=== PATIENT | female | born 1995 | race Hispanic/Latino ===

== ENCOUNTER → 2017-03-18 | Outpatient (CLI) | payer BC, MEDICAID | END | disposition home or self-care (01) | LOC: LAB.O 14:21 | PROVIDERS: ATTEND Obstetrics & Gynecology | DX: N91.5 Oligomenorrhea, unspecified (principal) ==

== ENCOUNTER 2017-10-26 00:27 | Emergency (ER) | payer BC ==
[2017-10-26 00:41] VITALS: BP 152/92; TEMP 98.7; O2SAT 98
[2017-10-26] MEDS ORDERED: IBUPROFEN 200 MG TAB PO ONE (00:51)
[2017-10-26] MEDS ORDERED: HYDROcodone 10MG/APAP 325MG 1 EA TAB PO ONE (00:51)
[2017-10-26] MEDS ORDERED: CYCLOBENZAPRINE HCL 10 MG TAB PO ONE (00:51)
--- NOTE | 2017-10-26 00:57 | ED.PDOC ---
History of Present Illness - General Chief Complaint: Back Pain or Injury Stated Complaint: pain to left side of back Time Seen by Provider: 10/26/17 00:51 Source: patient, family Exam Limitations: no limitations - History of Present Illness Initial Comments: Gradual onset of left sided back pain from the scapular region downward to almost the iliac crest. It does not radiate to the abdomen & is clearly worse with ROM, laughing & vomiting (after the onset of the pain). It hurts to try & raise her left arm. She reports no injury than perhaps from washing windows today. No previous episodes. No associated symptoms other than the vomiting which has resolved. Timing/Duration: 1-3 hours Quality/Severity: moderate, sharpness Back Pain Location: paraspinous muscles Back Pain Radiation: other - none Method of Injury/Prior Injury: other - she was washing & cleaning windows earlier today Improving Factors: nothing Worsening Factors: movement Associated Symptoms: denies symptoms Allergies/Adverse Reactions: Allergies NO KNOWN ALLERGY Allergy (Verified 10/26/17 00:41) Home Medications: Ambulatory Orders Cyclobenzaprine HCl [Flexeril] 10 mg PO Q8HR PRN #10 tab 10/26/17 Tramadol HCl 50 mg PO Q8HR PRN 3 Days #10 tab 10/26/17 Review of Systems - Review of Systems Constitutional: States: no symptoms reported EENTM: States: no symptoms reported Respiratory: States: no symptoms reported Cardiology: States: no symptoms reported Gastrointestinal/Abdominal: States: vomiting Genitourinary: States: no symptoms reported, other - hx of irregular menses Musculoskeletal: States: see HPI Skin: States: no symptoms reported Neurological: States: no symptoms reported All other Systems: No Change from Baseline Past Medical History (General) - Patient Medical History Hx Seizures: No Hx Stroke: No Hx Dementia: No Hx Asthma: No Hx of COPD: No Hx Cardiac Disorders: No Hx Congestive Heart Failure: No Hx Pacemaker: No Hx Hypertension: No Hx Thyroid Disease: No Hx Diabetes: No Hx Gastroesophageal Reflux: No Hx Renal Disease: No Hx of HIV: No Hx MRSA: No Surgical History: no surgical history - Vaccination History Hx Tetanus, Diphtheria Vaccination: No Hx Influenza Vaccination: No - Social History Hx Tobacco Use: No Hx Alcohol Use: No Family Medical History - Family History Mother Living Status: Still Living Physical Exam - Physical Exam General Appearance: Alert, No apparent distress, Other - uncomfortable; lying still & trying not to move Neck Exam: non-tender, full range of motion, normal inspection Cardiovascular/Respiratory: no JVD, no respiratory distress Back Exam: normal inspection, no vertebral tenderness, decreased range of motion , other - diffuse tenderness to left side of back Extremity Exam: no evidence of injury, pain with movement - of her back Neurologic: no motor/sensory deficits, alert, normal mood/affect, oriented x 3 Skin Exam: normal color, warm/dry Departure - Departure Clinical Impression: Back pain, Muscle strain Condition: Fair Departure Forms: Patient Portal Self Enrollment Instructions: DI for Low Back Pain, DI for Back Spasm, DI for Back Strain or Sprain Activity: walking as tolerated Prescriptions: Cyclobenzaprine HCl [Flexeril] 10 mg PO Q8HR PRN #10 tab PRN Reason: Joint Or Muscle Pain Tramadol HCl 50 mg PO Q8HR PRN 3 Days #10 tab PRN Reason: Moderate Pain Home Medications: Ambulatory Orders Cyclobenzaprine HCl [Flexeril] 10 mg PO Q8HR PRN #10 tab 10/26/17 Tramadol HCl 50 mg PO Q8HR PRN 3 Days #10 tab 10/26/17
== END 2017-10-26 01:19 | disposition home or self-care (01) ==
LOC: ER 00:27
DX: S29.012A Strain of muscle and tendon of back wall of thorax, initial encounter (principal); X58.XXXA Exposure to other specified factors, initial encounter; Y92.9 Unspecified place or not applicable

== ENCOUNTER 2017-11-02 16:10 | Emergency (ER) | payer BC ==
[2017-11-02] MEDS ORDERED: TETANUS,DIPHTHERIA,PERTUSSIS 1 EA SYG IM ONE (16:18)
[2017-11-02] MEDS ORDERED: AMOXICILLIN & POT CLAVULANATE 875 MG TAB PO ONE (16:18)
[2017-11-02 16:34] VITALS: BP 119/78; TEMP 98
--- NOTE | 2017-11-02 17:03 | RAD ---
EXAM DESCRIPTION: Fingers,Left CLINICAL HISTORY: 22 years Female dog bite pinky COMPARISON: None. TECHNIQUE: Left finger, three views FINDINGS: No acute fractures or dislocations are identified. No osseous destructive lesions. No radiopaque foreign object noted. IMPRESSION: No acute fracture is identified. Soft tissue swelling along the volar surface of the fifth digit Electronically signed by: Katya Montes MD 11/02/2017 5:02 PM CDT
--- NOTE | 2017-11-02 17:09 | ED.PDOC ---
History of Present Illness - General Chief Complaint: Bite: Animal/Insect/Human Stated Complaint: dog bite Time Seen by Provider: 11/02/17 16:17 Source: patient Exam Limitations: no limitations - History of Present Illness Initial Comments: the patient is a 22-year-old female presenting to the emergency room secondary to a dog bite to her left pinky. She has a couple of puncture wounds to the palmar aspect. She actually moves the pinky well but is reporting some mild decreased sensation down the lateral aspect. Capillary refills within normal limits. No deformity. She reports that she was getting her dog unstuckwhen he got scared and bit her. It is her dog. He has not been acting abnormally. No known exposure to rabies. Timing/Duration: 4-6 hours Severity: moderate Improving Factors: nothing Worsening Factors: nothing Associated Symptoms: denies symptoms Allergies/Adverse Reactions: Allergies NO KNOWN ALLERGY Allergy (Verified 10/26/17 00:41) Home Medications: Ambulatory Orders Cyclobenzaprine HCl [Flexeril] 10 mg PO Q8HR PRN #10 tab 10/26/17 Tramadol HCl 50 mg PO Q8HR PRN 3 Days #10 tab 10/26/17 Amoxicillin & Pot Clavulanate [Augmentin Tab] 875 mg PO BID #10 tab 11/02/17 Review of Systems - Review of Systems Constitutional: States: no symptoms reported EENTM: States: no symptoms reported Respiratory: States: no symptoms reported Cardiology: States: no symptoms reported Gastrointestinal/Abdominal: States: no symptoms reported Genitourinary: States: no symptoms reported Musculoskeletal: States: see HPI Skin: States: see HPI Neurological: States: no symptoms reported Endocrine: States: see HPI Hematologic/Lymphatic: States: no symptoms reported All other Systems: No Change from Baseline Past Medical History (General) - Patient Medical History Hx Seizures: No Hx Stroke: No Hx Dementia: No Hx Asthma: No Hx of COPD: No Hx Cardiac Disorders: No Hx Congestive Heart Failure: No Hx Pacemaker: No Hx Hypertension: No Hx Thyroid Disease: No Hx Diabetes: No Hx Gastroesophageal Reflux: No Hx Renal Disease: No Hx of HIV: No Hx MRSA: No Surgical History: no surgical history - Vaccination History Hx Tetanus, Diphtheria Vaccination: No Hx Influenza Vaccination: No - Social History Hx Tobacco Use: No Hx Alcohol Use: No Family Medical History - Family History Mother Living Status: Still Living Physical Exam - Physical Exam General Appearance: Alert, Comfortable, No apparent distress Eye Exam: bilateral normal Ears, Nose, Throat: hearing grossly normal Neck: full range of motion Respiratory: no respiratory distress, no accessory muscle use Cardiovascular/Chest: normal peripheral pulses, no edema Peripheral Pulses: radial,right: 2+, radial,left: 2+ Rectal Exam: deferred Back Exam: normal inspection Extremity: normal range of motion, no pedal edema, normal capillary refill 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 Capillary refills within normal limits. Comments: Vital Signs - 24 hr 11/02/17 16:30 Temperature 98.0 F Pulse Rate [ 95 H right brachial] Respiratory 16 Rate Blood Pressure 119/78 [right brachial ] O2 Sat by Pulse 90 L Oximetry Progress - Progress Progress: 11/02/17 17:09 the patient is a 22-year-old female presenting to emergency room due to a dog bite to the 5th digit of her left hand. The dog was her own. No abnormal behavior recently. The bite has been reported. The wound has been irrigated for 5 minutes. The patient will be placed on Augmentin twice a day for 5 days for infection prophylaxis. She has received a tetanus shot. Monitor for infection. ER warnings were given. Departure - Departure Clinical Impression: Bite wound Disposition: Discharge to Home or Self Care Condition: Fair Departure Forms: ED Discharge - Pt. Copy, Patient Portal Self Enrollment Diet: regular diet Activity: increase activity as tolerated Prescriptions: Amoxicillin & Pot Clavulanate [Augmentin Tab] 875 mg PO BID #10 tab Home Medications: Ambulatory Orders Cyclobenzaprine HCl [Flexeril] 10 mg PO Q8HR PRN #10 tab 10/26/17 Tramadol HCl 50 mg PO Q8HR PRN 3 Days #10 tab 10/26/17 Amoxicillin & Pot Clavulanate [Augmentin Tab] 875 mg PO BID #10 tab 11/02/17 Additional Instructions: the patient is a 22-year-old female presenting to emergency room due to a dog bite to the 5th digit of her left hand. The dog was her own. No abnormal behavior recently. The bite has been reported. The wound has been irrigated for 5 minutes. The patient will be placed on Augmentin twice a day for 5 days for infection prophylaxis. She has received a tetanus shot. Monitor for infection. ER warnings were given.
[2017-11-02 17:27] VITALS: O2SAT 98
== END 2017-11-02 17:26 | disposition home or self-care (01) ==
LOC: ER 16:10
DX: S61.257A Open bite of left little finger without damage to nail, initial encounter (principal); Z23 Encounter for immunization; W54.0XXA Bitten by dog, initial encounter; Y92.9 Unspecified place or not applicable

== ENCOUNTER → 2017-11-21 | Outpatient (CLI) | payer BC | LOC: LAB.O 10:47 | PROVIDERS: ATTEND Obstetrics & Gynecology | DX: R11.2 Nausea with vomiting, unspecified (principal) ==

== ENCOUNTER 2018-11-05 23:01 | Emergency (ER) | payer BC, OTHER ==
[2018-11-05 23:21] VITALS: BP 124/76; TEMP 98.5; O2SAT 95
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
[2018-11-05] MEDS ORDERED: traMADol HCL 50 MG TAB PO ONE (23:39)
== END 2018-11-06 00:01 | disposition home or self-care (01) ==
LOC: ER 23:01
DX: S49.92XA Unspecified injury of left shoulder and upper arm, initial encounter (principal); Y09 Assault by unspecified means; Y99.0 Civilian activity done for income or pay; Y92.69 Other specified industrial and construction area as the place of occurrence of the external cause

== ENCOUNTER 2020-03-15 17:55 | Emergency (ER) | payer BC ==
[2020-03-15] MEDS ORDERED: ONDANSETRON INJ 4 MG/2 ML VIAL ONE (18:05)
[2020-03-15] MEDS ORDERED: KETOROLAC TROMETHAMINE INJ 30 MG/ML VIAL IM ONE (18:09)
[2020-03-15] MEDS ORDERED: ONDANSETRON INJ 4 MG/2 ML VIAL IV ONE (18:09)
[2020-03-15] MEDS ORDERED: SODIUM CHLORIDE 0.9% 1000ML 1,000 ML IVS ONE (18:10)
[2020-03-15] MEDS ORDERED: ALUM & MAG HYDROX-SIMETHICONE 30 ML, LIDOCAINE VISCOUS 2% 15 ML PO ONE ×2 (18:11)
--- NOTE | 2020-03-15 18:20 | ED.PDOC ---
History of Present Illness - General Chief Complaint: Chest Pain/MN Time Seen by Provider: 03/15/20 18:01 Source: patient Exam Limitations: no limitations - History of Present Illness Initial Comments: The patient is a 24-year-old female presenting secondary to chest pain that started abruptly 1 hour prior to arrival. It occurred while she was sitting up breast-feeding her baby. Pain is just to the right of the lower sternal border. It is worse with movement and with palpation. It is not worse with taking a deep breath or coughing. No obvious palpable trauma. No clinical evidence of mastitis. No palpitations. The patient has very poor eye contact during the interview. Eyes largely remain closed and the patient is crying. She seems to be more upset than hurting. Vital signs are stable. Timing/Duration: 1 hour Severity: severe Improving Factors: nothing Worsening Factors: movement Associated Symptoms: chest pain Allergies/Adverse Reactions: Allergies NO KNOWN ALLERGY Allergy (Verified 10/26/17 00:41) Home Medications: Ambulatory Orders Acetaminophen W/ Codeine [Tylenol w/Codeine 300-30 mg] 1 tab PO Q4H PRN 03/15/20 Docusate Sodium [Colace] 100 mg PO BID 03/15/20 Ferrous Sulfate [Iron] 65 mg PO DAILY 03/15/20 Ibuprofen 800 mg PO Q8H PRN 03/15/20 Review of Systems - Review of Systems Constitutional: States: malaise EENTM: States: no symptoms reported Respiratory: States: no symptoms reported Cardiology: States: chest pain Gastrointestinal/Abdominal: States: no symptoms reported Genitourinary: States: no symptoms reported Musculoskeletal: States: see HPI Skin: States: no symptoms reported Neurological: States: anxiety Endocrine: States: no symptoms reported All other Systems: No Change from Baseline Past Medical History (General) - Patient Medical History Hx Seizures: No Hx Stroke: No Hx Dementia: No Hx Asthma: No Hx of COPD: No Hx Cardiac Disorders: No Hx Congestive Heart Failure: No Hx Pacemaker: No Hx Hypertension: No Hx Thyroid Disease: No Hx Diabetes: No Hx Gastroesophageal Reflux: No Hx Renal Disease: No Hx of HIV: No Hx MRSA: No - Vaccination History Hx Tetanus, Diphtheria Vaccination: Yes Hx Influenza Vaccination: Yes - Social History Hx Tobacco Use: No Hx Alcohol Use: Yes Family Medical History - Family History Mother Living Status: Still Living Physical Exam - Physical Exam General Appearance: Alert, Anxious - Appears sad Eye Exam: bilateral normal Ears, Nose, Throat: hearing grossly normal, normal pharynx Neck: full range of motion, supple Respiratory: lungs clear, normal breath sounds, no respiratory distress, no accessory muscle use, other - Chest wall tenderness as above Cardiovascular/Chest: normal peripheral pulses, regular rate, rhythm, no edema Peripheral Pulses: radial,right: 2+, radial,left: 2+ Gastrointestinal/Abdominal: non tender, soft Rectal Exam: deferred Back Exam: no CVA tenderness, no vertebral tenderness Extremity: normal range of motion, non-tender, normal inspection, no pedal edema, normal capillary refill 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, alert, oriented x 3, other - See above for mood Skin Exam: normal color Comments: Vital Signs - 8 hr 03/15/20 03/15/20 03/15/20 17:55 19:25 20:00 Temperature 98.0 F Pulse Rate [ 74 69 71 left brachial] Respiratory 26 H 20 18 Rate Blood Pressure 133/90 124/79 120/72 [left brachial] O2 Sat by Pulse 93 L 97 97 Oximetry 03/15/20 21:03 Temperature Pulse Rate [ 69 left brachial] Respiratory 18 Rate Blood Pressure 121/74 [left brachial] O2 Sat by Pulse 97 Oximetry Progress - Progress Progress: 03/15/20 21:36 The patient is a 24-year-old female presenting to the emergency room secondary to acute onset chest pain primarily to the right of the sternal border. This is most likely costochondritis versus medial pectoral muscle insertion spasm related to holding the child for breast-feeding. The patient is doing better after medications. She was hydrated with a liter of fluid additionally. EKG, CT angiogram of the chest and lab work are reassuring as well. She does need to do stretches to help reduce muscle spasm. Keep well-hydrated. Topical heat may also help. ER warnings are given. The patient has been monitored more than 4 hours. jonathan maurer [phone] - Results/Orders Results/Orders: EKG shows normal sinus rhythm at 73 bpm. Normal axis. Normal R wave progression. Mild inverted T wave in lead III. Normal QT interval. No ST segment or T wave changes otherwise indicative of any ischemia. Laboratory Tests 10/22/20 10/22/20 10/22/20 18:28 18:28 18:28 WBC 7.5 RBC 4.92 Hgb 13.8 Hct 41.5 MCV 84.3 MCH 28.0 MCHC 33.2 RDW 17.4 H Plt Count 296 MPV 9.2 Absolute Neuts (auto) 3.60 Absolute Lymphs (auto) 2.90 Absolute Monos (auto) 0.30 Absolute Eos (auto) 0.60 H Absolute Basos (auto) 0.10 Neutrophils % 47.4 Lymphocytes % 39.2 Monocytes % 4.6 Eosinophils % 8.1 H Basophils % 0.7 PT 10.1 INR 1.02 PTT (SP) 22.5 D-Dimer, Quantitative 683.0 H* Sodium 142 Potassium 3.9 Chloride 105 Carbon Dioxide 27 Anion Gap 13.9 BUN 13 Creatinine 0.73 BUN/Creatinine Ratio 17.8 Random Glucose 108 H Serum Osmolality 283.8 Calcium 9.0 Magnesium 1.9 Total Bilirubin 0.8 AST 28 ALT 28 Alkaline Phosphatase 93 Creatine Kinase 79 CK-MB (CK-2) 2.1 CK-MB (CK-2) % Not Reportable Troponin I 0.02 B-Natriuretic Peptide 19.0 Serum Total Protein 7.4 Albumin 4.1 Globulin 3.3 Albumin/Globulin Ratio 1.2 TSH 1.57 Urine Color Urine Appearance Urine pH Ur Specific [place] Urine Protein Urine Glucose (UA) Urine Ketones Urine Blood Urine Nitrite Urine Bilirubin Urine Urobilinogen Ur Leukocyte Esterase Urine RBC Urine WBC Ur Epithelial Cells Amorphous Sediment Urine Bacteria Urine Mucus Urine Opiates Screen Urine Barbiturates Ur Phencyclidine Scrn U Amphetamin/Meth Scrn U Benzodiazepines Scrn U Cocaine Metab Screen U Cannabinoids Screen 03/15/20 03/15/20 03/15/20 19:41 19:41 21:03 WBC RBC Hgb Hct MCV MCH MCHC RDW Plt Count MPV Absolute Neuts (auto) Absolute Lymphs (auto) Absolute Monos (auto) Absolute Eos (auto) Absolute Basos (auto) Neutrophils % Lymphocytes % Monocytes % Eosinophils % Basophils % PT INR PTT (SP) D-Dimer, Quantitative Sodium Potassium Chloride Carbon Dioxide Anion Gap BUN Creatinine BUN/Creatinine Ratio Random Glucose Serum Osmolality Calcium Magnesium Total Bilirubin AST ALT Alkaline Phosphatase Creatine Kinase 61 CK-MB (CK-2) 1.8 CK-MB (CK-2) % Not Reportable Troponin I < 0.02 B-Natriuretic Peptide Serum Total Protein Albumin Globulin Albumin/Globulin Ratio TSH Urine Color Yellow Urine Appearance Clear Urine pH 6.5 Ur Specific [place] 1.010 Urine Protein Negative Urine Glucose (UA) Negative Urine Ketones Negative Urine Blood Large H Urine Nitrite Negative Urine Bilirubin Negative Urine Urobilinogen 1.0 Ur Leukocyte Esterase Negative Urine RBC 5-10 H Urine WBC 5-10 H Ur Epithelial Cells 0-1 Amorphous Sediment Trace Urine Bacteria Rare Urine Mucus Trace Urine Opiates Screen Negative Urine Barbiturates Negative Ur Phencyclidine Scrn Negative U Amphetamin/Meth Scrn Negative U Benzodiazepines Scrn Negative U Cocaine Metab Screen Negative U Cannabinoids Screen Negative CT angiogram of the chest shows no acute pathology. Departure - Departure Clinical Impression: Pectoralis muscle strain Qualifiers: Encounter type: initial encounter Qualified Code(s): S29.011A - Strain of muscle and tendon of front wall of thorax, initial encounter Disposition: Discharge to Home or Self Care Condition: Fair Departure Forms: ED Discharge - Pt. Copy, Patient Portal Self Enrollment Instructions: DI for Chest Pain Diet: regular diet Activity: increase activity as tolerated Referrals: Jasen Hirsch MD [Primary Care Provider] - 1-2 Weeks Home Medications: Ambulatory Orders Acetaminophen W/ Codeine [Tylenol w/Codeine 300-30 mg] 1 tab PO Q4H PRN 03/15/20 Docusate Sodium [Colace] 100 mg PO BID 03/15/20 Ferrous Sulfate [Iron] 65 mg PO DAILY 03/15/20 Ibuprofen 800 mg PO Q8H PRN 03/15/20 Additional Instructions: The patient is a 24-year-old female presenting to the emergency room secondary to acute onset chest pain primarily to the right of the sternal border. This is most likely costochondritis versus medial pectoral muscle insertion spasm related to holding the child for breast-feeding. The patient is doing better after medications. She was hydrated with a liter of fluid additionally. EKG, CT angiogram of the chest and lab work are reassuring as well. She does need to do stretches to help reduce muscle spasm. Keep well-hydrated. Topical heat may also help. ER warnings are given. The patient has been monitored more than 4 hours.
--- NOTE | 2020-03-15 18:30 | RAD ---
EXAM: XR Chest, 1 View CLINICAL HISTORY: The patient is 24 years old and is Female; acute chest pain TECHNIQUE: Single view of the chest. COMPARISON: No relevant prior studies available. FINDINGS: Lungs: Unremarkable. No consolidation. Pleural space: Unremarkable. No pneumothorax. Heart: Unremarkable. No cardiomegaly. Mediastinum: Unremarkable. Bones/joints: No acute fracture visualized. Upper abdomen: No free air in the visualized upper abdomen. IMPRESSION: No acute cardiopulmonary process identified. Electronically signed by: Catie Mg MD 03/15/2020 6:29 PM CDT
[2020-03-15 19:13] VITALS: TEMP 98
[2020-03-15 19:26] VITALS: O2SAT 97
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
[2020-03-15 22:06] VITALS: BP 119/73
== END 2020-03-15 21:53 | disposition home or self-care (01) ==
LOC: ER 17:55
DX: S29.011A Strain of muscle and tendon of front wall of thorax, initial encounter (principal); X58.XXXA Exposure to other specified factors, initial encounter; Y92.9 Unspecified place or not applicable
CPT/HCPCS: 36415; 71045; 71275; 80053; 80307; 81001; 82550; 82553; 83735; 83880; 84443; 84484; 85025; 85379; 85610; 85730; 93005; J1885; J2060; J2405; J7030

== ENCOUNTER 2020-03-17 09:00 | Emergency (ER) | payer BC ==
[2020-03-17] MEDS ORDERED: ONDANSETRON INJ 4 MG/2 ML VIAL IV ONE (09:14)
[2020-03-17] MEDS ORDERED: SODIUM CHLORIDE 0.9% (FLUSH) 10 ML SYG IV PRN (09:14)
[2020-03-17] MEDS ORDERED: MORPHINE SULFATE INJ 10 MG/ML VIAL IV ONE (09:14)
[2020-03-17] MEDS ORDERED: SODIUM CHLORIDE 0.9% 1000ML 1,000 ML IVS PRN (09:14)
--- NOTE | 2020-03-17 09:20 | ED.PDOC ---
History of Present Illness - General Chief Complaint: Chest Pain/CT Stated Complaint: Epigastric pain Time Seen by Provider: 03/17/20 09:09 Source: patient, RN notes reviewed, Vital Signs reviewed, family Exam Limitations: no limitations Additional Information: Patient reported to nurses that she was having chest pain, but she localizes the pain to the epigastric and right upper quadrant area. - History of Present Illness Initial Comments: This is a 24-year-old female who is 3 weeks postop from an uncomplicated C- section presenting to the emergency department with severe epigastric and right upper quadrant pain. Patient was seen in the emergency department 2 days ago for chest pain and had extensive work-up, including CTA of the chest. She was ultimately diagnosed with chest wall muscle strain. She states the pain is gotten more severe since then.She localizes the pain to the epigastric area radiates through to the back. She reports associated nausea/vomiting. She also reports that her stools have been "white" in color. She denies any diarrhea. she denies any fever. She is breast-feeding. Allergies/Adverse Reactions: Allergies NO KNOWN ALLERGY Allergy (Verified 10/26/17 00:41) Home Medications: Ambulatory Orders Acetaminophen W/ Codeine [Tylenol w/Codeine 300-30 mg] 1 tab PO Q4H PRN 03/15/20 Docusate Sodium [Colace] 100 mg PO BID 03/15/20 Ferrous Sulfate [Iron] 65 mg PO DAILY 03/15/20 Ibuprofen 800 mg PO Q8H PRN 03/15/20 Review of Systems - Review of Systems Constitutional: Denies: chills, fever EENTM: Denies: ear pain, nose congestion, throat pain Respiratory: Denies: cough, orthopnea, short of breath Cardiology: States: chest pain. Denies: edema, palpitations Gastrointestinal/Abdominal: States: abdominal pain, nausea, vomiting. Denies: constipation Genitourinary: Denies: dysuria, hematuria Musculoskeletal: Denies: joint pain, muscle pain, neck pain Skin: Denies: lesions, rash Neurological: Denies: headache, paresthesia, tingling, weakness Endocrine: States: no symptoms reported Hematologic/Lymphatic: States: no symptoms reported Past Medical History (General) - Patient Medical History Hx Seizures: No Hx Stroke: No Hx Dementia: No Hx Asthma: No Hx of COPD: No Hx Cardiac Disorders: No Hx Congestive Heart Failure: No Hx Pacemaker: No Hx Hypertension: No Hx Thyroid Disease: No Hx Diabetes: No Hx Gastroesophageal Reflux: No Hx Renal Disease: No Hx of HIV: No Hx MRSA: No - Vaccination History Hx Tetanus, Diphtheria Vaccination: Yes Hx Influenza Vaccination: Yes - Social History Hx Tobacco Use: No Hx Alcohol Use: Yes Family Medical History - Family History Mother Living Status: Still Living Physical Exam - Physical Exam General Appearance: Alert, Well Developed, Well Groomed, Well Nourished, Other - Appears uncomfortable Ears, Nose, Throat: hearing grossly normal, normal ENT inspection, normal pharynx Neck: non-tender, full range of motion Respiratory: chest non-tender, lungs clear, normal breath sounds, no respiratory distress Cardiovascular/Chest: normal peripheral pulses, regular rate, rhythm, no edema Peripheral Pulses: dorsalis pedis,right: 2+, dorsalis pedis,left: 2+, posterior tibialis,right: 2+, posterior tibialis,left: 2+ Gastrointestinal/Abdominal: soft, no organomegaly, tenderness - Midepigastric, right upper quadrant, positive Pritchard sign Back Exam: no CVA tenderness, no vertebral tenderness Extremity: normal range of motion, non-tender, normal inspection Neurologic: no motor/sensory deficits, alert, normal mood/affect, oriented x 3 Skin Exam: normal color, warm/dry Progress - Progress Progress: 03/17/20 09:21 Old records reviewed from visit on 03/15/2020. Patient reported chest pain at that time, her troponin was negative, EKG was normal, D-dimer was slightly elevated. I suspect this is likely due to her recent surgery. Her labs were otherwise unremarkable, including normal LFTs. CTA of the chest showed no evidence of PE. She was diagnosed with a chest wall muscle strain. On my exam today, her pain appears to be more consistent with hepatobiliary/pancreatic pathology. She has no previous history of gallbladder surgery or pancreatitis. Will send blood, give pain control, ultrasound will be available around 11 AM. Given her recent CTA of the chest, I would prefer ultrasound as initial study for her gallbladder. 03/17/20 09:54 Rechecked. Pain improving after morphine. Respiratory rate has decreased with pain control. She has no leukocytosis. She has no tachycardia. She is afebrile. I believe her respiratory rate was pain driven, my suspicion for sepsis at this time is low. She does have UA suggestive of possible UTI, will give meropenem to cover both urine and gallbladder. Her LFTs are markedly elevated, including elevated T bili, AST, ALT and obstructive pattern concerning for choledocholithiasis. I anticipate she will likely need to be transferred for MRCP/ERCP. I discussed this with the patient and her family, they request transfer to [facility] if possible. 03/17/20 11:32 [facility] called, awaiting administrative approval. 03/17/20 12:35 [facility] declined transfer due to capacity. Transfer center has contacted [facility] service, awaiting callback. Pain remains well controlled at this time. 03/17/20 12:51 Patient requested transfer to [facility] in [place]. I called to confirm ERCP is available that facility, which it is. I am awaiting doc to doc call for acceptance. 03/17/20 13:[address] Lopez, GI at [facility]. Agrees with plan for transfer. Will see upon transfer.Dr. Sherwood, emergency medicine accepted transfer. 03/17/20 13:27 Patient updated on plan for transfer, all questions answered. Patient agrees with plan. DDx: Cholecystitis, choledocholithiasis, pancreatitis, pyelonephritis, kidney stone MDM: Patient presenting with severe right upper quadrant midepigastric pain. She has elevated LFTs and T bili and obstructive pattern, CBD is dilated at 8 mm. There is no gallbladder wall thickening or pericholecystic fluid to suggest cholecystitis. Strong suspect choledocholithiasis. Pain is well controlled at this time, vital signs normal. I feel likelihood for sepsis is low at this time. There is no GI or MRCP/ERCP available at this facility. Will transfer to [facility] for GI evaluation Tomer Eubanks DO [facility] #[id number] - Results/Orders Results/Orders: 03/17/20 09:14 IV Care:Saline Lock per Protoc QSHIFT Sodium Chloride 0.9% (Flush) [Saline Flush Syringe] 10 ml IV PRN PRN Sodium Chloride 0.9% 1000ML [Ns 1000 ml] 1,000 ml IVS .QD 03/17/20 09:15 EKG STAT 03/17/20 09:19 Gall Bladder [US] Stat 10/24/20 09:27 URINE CULTURE W/COLONY COUNT Stat 03/17/20 09:43 URINE CULTURE W/COLONY COUNT Stat 03/17/20 09:52 Meropenem [Merrem] 1 gm Sodium Chl 0.9% 50Ml Min-Bag+ [NS 50ml MINI-BAG+] 50 ml IVPB ONCE EKG reviewed personally by me at 0909. Normal sinus rhythm, rate of 80, normal axis, normal intervals, no ST segment elevations or depressions. Laboratory Results - last 24 hr 03/17/20 03/17/20 03/17/20 09:23 09:23 09:27 WBC 6.1 RBC 4.87 Hgb 13.4 Hct 40.6 MCV 83.4 MCH 27.6 MCHC 33.1 RDW 17.5 H Plt Count 283 MPV 9.3 Absolute Neuts (auto) 4.10 Absolute Lymphs (auto) 1.30 Absolute Monos (auto) 0.30 Absolute Eos (auto) 0.30 Absolute Basos (auto) 0.10 Neutrophils % 67.6 Lymphocytes % 20.8 Monocytes % 4.5 Eosinophils % 5.6 H Basophils % 1.5 Sodium 141 Potassium 3.7 Chloride 101 Carbon Dioxide 29 Anion Gap 14.7 BUN 9 Creatinine 0.68 BUN/Creatinine Ratio 13.2 Random Glucose 108 H Serum Osmolality 280.5 Calcium 8.9 Total Bilirubin 2.8 H* D Direct Bilirubin 1.3 H Indirect Bilirubin 1.5 H AST 334 H D ALT 527 H D Alkaline Phosphatase 220 H D Serum Total Protein 7.3 Albumin 4.2 Lipase 32 Urine Color [place] H Urine Appearance Clear Urine pH 6.0 Ur Specific [place] >= 1.030 Urine Protein 30 Urine Glucose (UA) Negative Urine Ketones Trace Urine Blood Large H Urine Nitrite Negative Urine Bilirubin Large Urine Urobilinogen 1.0 Ur Leukocyte Esterase Large H Urine RBC 20-30 H Urine WBC 20-30 H Ur Epithelial Cells 3-5 Urine Bacteria 2+ H Sex: Female. : 1995. TECHNIQUE: Transabdominal scans of the right upper quadrant of the abdomen with grayscale imaging and Doppler. Clinical history: RUQ pain. Liver: 16.4 cm. There is coarsened echotexture from fatty infiltration. Portal vein: 1.3 cm. There is documented portal flow. Gallbladder: The gallbladder is distended and measures 10.3 x 3.9 cm. There are multiple layering shadowing ga llstones ranging up to about 7 mm. Sonographic Pritchard sign: Absent. Gallbladder wall: 2.7 mm. Biliary ducts: Common bile duct is mildly dilated and measures 8.2 mm. Pancreas: Normal although the body and tail are not well seen. Right kidney: 9.7 cm. No hydronephrosis. Free fluid: None. Aorta and IVC: Normal as visualized. IMPRESSION: 1. Distended gallbladder and gallstones. 2. Mild biliary ductal dilatation. MRCP may be helpful if further imaging is desired. 3. Hepatic steatosis. Electronically signed by: Maximo Lombardi MD 03/17/2020 11:34 AM Departure - Departure Clinical Impression: Abdominal pain, acute, epigastric, Choledocholithiasis Time of Disposition: 11:30 Disposition: Transfer to Hospital Condition: Fair Departure Forms: ED Discharge - Pt. Copy, Patient Portal Self Enrollment Instructions: DI for Chest Pain Referrals: Jasen Hirsch MD [Primary Care Provider] - 1-2 Weeks Home Medications: Ambulatory Orders Acetaminophen W/ Codeine [Tylenol w/Codeine 300-30 mg] 1 tab PO Q4H PRN 03/15/20 Docusate Sodium [Colace] 100 mg PO BID 03/15/20 Ferrous Sulfate [Iron] 65 mg PO DAILY 03/15/20 Ibuprofen 800 mg PO Q8H PRN 03/15/20 Transfer to Outside Facility - Transfer Information Decision to Transfer Date: 03/17/20 Decision to Transfer Time: 11:30 Reason for Transfer: required specialist not available Accepting Provider:: Dr. Sherwood Accepting Facility: [facility]
[2020-03-17] MEDS ORDERED: MEROPENEM 1 GM in SODIUM CHL 0.9% 50ML MIN-BAG+ 50 ML IVPB ONE (09:52)
--- NOTE | 2020-03-17 11:36 | US ---
Sex: Female. : 1995. TECHNIQUE: Transabdominal scans of the right upper quadrant of the abdomen with grayscale imaging and Doppler. Clinical history: RUQ pain. Liver: 16.4 cm. There is coarsened echotexture from fatty infiltration. Portal vein: 1.3 cm. There is documented portal flow. Gallbladder: The gallbladder is distended and measures 10.3 x 3.9 cm. There are multiple layering shadowing gallstones ranging up to about 7 mm. Sonographic Pritchard sign: Absent. Gallbladder wall: 2.7 mm. Biliary ducts: Common bile duct is mildly dilated and measures 8.2 mm. Pancreas: Normal although the body and tail are not well seen. Right kidney: 9.7 cm. No hydronephrosis. Free fluid: None. Aorta and IVC: Normal as visualized. IMPRESSION: 1. Distended gallbladder and gallstones. 2. Mild biliary ductal dilatation. MRCP may be helpful if further imaging is desired. 3. Hepatic steatosis. Electronically signed by: Maximo Lombardi MD 03/17/2020 11:34 AM CDT
[2020-03-17 14:06] VITALS: BP 112/71; TEMP 97.8; O2SAT 97
== END 2020-03-17 14:15 | disposition short-term general hospital (02) ==
LOC: ER 09:00
DX: K80.50 Calculus of bile duct without cholangitis or cholecystitis without obstruction (principal); K76.0 Fatty (change of) liver, not elsewhere classified; Z20.828 Contact with and (suspected) exposure to other viral communicable diseases; R11.2 Nausea with vomiting, unspecified
CPT/HCPCS: 36415; 76705; 80048; 80076; 81001; 83690; 85025; 87086; 87486; 87581; 87633; 87635; 93005; J2185; J2270; J2405; J7030; J7050